=== PATIENT | male | born 1995 | race Caucasian/White ===

== ENCOUNTER 2018-05-07 06:00 | Emergency (ER) | payer SELFPAY ==
[~2018-05-07] VITALS: Ht 177.8 cm; Wt 74.8 kg
[2018-05-07 06:00] VITALS: BP 138/65
[2018-05-07] MEDS: LIDOCAINE 2% 1000 MG/50 ML VIAL INJ ONE (06:39)
[2018-05-07 07:00] VITALS: BP 145/76
== END 2018-05-07 06:59 | disposition home or self-care (01) ==
LOC: MED 06:00
DX: S61.216A Laceration without foreign body of right little finger without damage to nail, initial encounter (principal); Z02.89 Encounter for other administrative examinations; Z88.8 Allergy status to other drugs, medicaments and biological substances; V89.2XXA Person injured in unspecified motor-vehicle accident, traffic, initial encounter; Y93.89 Activity, other specified; Y92.89 Other specified places as the place of occurrence of the external cause; Y99.8 Other external cause status
CPT/HCPCS: 12001; 99283; J2001